=== PATIENT | female | born 1960 | race Native Hawaiian/Other Pacific Islander ===

== ENCOUNTER 2017-08-17 08:02 | Emergency (ER) | payer OTHER ==
[2017-08-17 08:12] VITALS: BMI 28.3
[2017-08-17 08:15] VITALS: TEMP 97.6
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
[2017-08-17 09:03] LABS: BASO # 0.1 K/uL (0.0-0.2); EOS # 0.5 K/uL (0.0-0.7); EOS % 9.2 % (0.0-4.0); HEMATOCRIT 42.2 % (34.0-47.0); LYMPH # 1.7 K/uL (1.0-4.3); LYMPH % 33.3 % (20.0-40.0); MEAN CORPUSCULAR HEMOGLOBIN 30.7 pg (27.0-31.0); MEAN CORPUSCULAR HGB CONC 33.7 g/dL (33.0-37.0); MEAN PLATELET VOLUME 8.4 fL (7.2-11.7); MONO # 0.5 K/uL (0.0-0.8); MONO % 9.6 % (0.0-10.0); NRBC % 0.2 % (0.0-2.0); RED CELL DISTRIBUTION WIDTH 13.3 % (11.5-14.5); WHITE BLOOD COUNT 5.1 K/uL (4.8-10.8)
[2017-08-17 09:16] LABS: RBC URINE 7 /hpf (0-3); URINE BACTERIA OCC (<OCC); URINE BILIRUBIN NEGATIVE (NEGATIVE); URINE COLOR Yellow (YELLOW); URINE GLUCOSE (UA) NORMAL (Normal); URINE KETONE NEGATIVE (NEGATIVE); URINE LEUKOCYTE ESTERASE NEG Leu/uL (Negative); URINE PROTEIN NEGATIVE (NEGATIVE); URINE UROBILINOGEN NORMAL mg/dL (0.2-1.0); WBC URINE 1 /hpf (0-5)
[2017-08-17 09:17] LABS: URINE BLOOD 1+ (NEGATIVE)
[2017-08-17 09:20] LABS: ALB/GLOB RATIO 1.6 (1.0-2.1); ALKALINE PHOSPHATASE 57 U/L (38-126); ALT/SGPT 41 U/L (9-52); AST/SGOT 31 U/L (14-36); BILIRUBIN,TOTAL 0.7 mg/dL (0.2-1.3); BLOOD UREA NITROGEN 13 mg/dL (7-17); CALCIUM 8.8 mg/dl (8.6-10.4); CARBON DIOXIDE 27 mmol/L (22-30); CHLORIDE 105 mmol/L (98-107); GFR AFRICAN-AMERICAN > 60; GLUCOSE,RANDOM 126 mg/dL (65-105); POTASSIUM 4.4 mmol/L (3.6-5.2); SODIUM 138 mmol/L (132-148); TOTAL PROTEIN 6.7 g/dL (6.3-8.3)
--- NOTE | 2017-08-17 09:26 | RAD ---
HISTORY: SOB COMPARISON: Chest radiographs 06/23/2014. TECHNIQUE: Chest PA and lateral FINDINGS: LUNGS: No active pulmonary disease. PLEURA: No significant pleural effusion identified. No pneumothorax apparent. CARDIOVASCULAR: Normal. OSSEOUS STRUCTURES: A non-destructive calcific density is once again identified at the right 7th rib postero-laterally once again. No significant abnormalities. VISUALIZED UPPER ABDOMEN: Normal. OTHER FINDINGS: None. IMPRESSION: No interval acute cardiopulmonary disease appreciated. Stable hyperdensity right 7th rib.
[2017-08-17 11:40] VITALS: BP 124/62; PULSE 69; RESP 18
[2017-08-17 11:41] VITALS: O2SAT 98
== END 2017-08-17 11:45 | disposition home or self-care (01) ==
LOC: C.ER 08:02
DX: R07.9 Chest pain, unspecified (principal); E78.00 Pure hypercholesterolemia, unspecified; I10 Essential (primary) hypertension

== ENCOUNTER 2018-02-18 17:46 | Emergency (ER) | payer OTHER ==
[2018-02-18 17:46] VITALS: BMI 28.3
[2018-02-18 17:55] VITALS: PULSE 78; RESP 18; TEMP 98; O2SAT 98
[2018-02-18] MEDS ORDERED: Bacitracin 500 Units/gm Oint Foilpak UD ONE (18:45)
--- NOTE | 2018-02-18 19:16 | C.PDOC ---
History Of Present Illness 57-year-old female presents to the ED for evaluation of left ankle pain which began earlier today. Patient states she was hiking when she accidentally tripped over a curb, twisted her left ankle, and injured her right knee. Patient denies pain to her right knee. Patient is unable to bear weight, prompting this visit. She denies head injury, LOC, extremity numbness/weakness. Time Seen by Provider: 02/18/18 17:52 Chief Complaint (Nursing): Lower Extremity Problem/Injury History Per: Patient History/Exam Limitations: no limitations Onset/Duration Of Symptoms: Hrs Current Symptoms Are (Timing): Still Present Additional History Per: Patient - Ankle/Foot Description Of Injury: Twisted Past Medical History Reviewed: Historical Data, Nursing Documentation, Vital Signs Vital Signs: Last Vital Signs Temp 98 F 02/18/18 17:51 Pulse 78 02/18/18 17:51 Resp 18 02/18/18 17:51 BP Pulse Ox 98 02/18/18 19:35 - Medical History PMH: Asthma, HTN, Hypercholesterolemia Family History: States: Unknown Family Hx - Social History Hx Tobacco Use: No Hx Alcohol Use: No Hx Substance Use: No - Immunization History Hx Tetanus Toxoid Vaccination: No Hx Influenza Vaccination: Yes Hx Pneumococcal Vaccination: No Review Of Systems Musculoskeletal: Positive for: Other (left ankle pain ) Neurological: Negative for: Weakness, Numbness, Other (head injury, LOC ) Physical Exam - Physical Exam Appears: Non-toxic, No Acute Distress Skin: Normal Color, Warm, Dry Head: Atraumatic, Normacephalic Eye(s): bilateral: Normal Inspection Oral Mucosa: Moist Neck: Supple Chest: Symmetrical, No Deformity, No Tenderness Cardiovascular: Rhythm Regular Respiratory: Normal Breath Sounds Extremity: Normal ROM (left toes ), Tenderness (mild, to left lateral malleolus ), Capillary Refill (less than 2 seconds ), Swelling (mild, to left lateral malleolus ) Pulses: Left Dorsalis Pedis: Normal Neurological/Psych: Oriented x3, Normal Speech, Normal Cognition, Normal Sensation ED Course And Treatment O2 Sat by Pulse Oximetry: 98 (on RA) Pulse Ox Interpretation: Normal Medical Decision Making Medical Decision Making: Progress: Left ankle XR and left foot XR ordered. Results are unremarkable. Tylenol PO administered. Air cast applied and patient instructed in crutch training Disposition - Disposition Referrals: Balise Gonzalez III, MD [Staff Provider] - Disposition: HOME/ ROUTINE Disposition Time: 19:33 Condition: GOOD Additional Instructions: Follow up with the Orthopedist within 1-2 days. Return if worsened. Instructions: Ankle Sprain (DC) Forms: [facility] ([place]ian), Work Excuse - Clinical Impression Clinical Impression: Ankle sprain - PA / GAS TRANSFER OPERATOR / Resident Statement MD/DO has reviewed & agrees with the documentation as recorded. - Scribe Statement The provider has reviewed the documentation as recorded by the Scribe (Syeda Benavides) All medical record entries made by the Scribe were at my direction and personally dictated by me. I have reviewed the chart and agree that the record accurately reflects my personal performance of the history, physical exam, medical decision making, and the department course for this patient. I have also personally directed, reviewed, and agree with the discharge instructions and disposition.
--- NOTE | 2018-02-18 19:41 | RAD ---
PROCEDURE: Left Ankle Radiographs. HISTORY: r/o fracture COMPARISON: None FINDINGS: BONES: No acute fracture or destructive bony lesion identified. JOINTS: Normal. No osteoarthritis. Ankle mortise maintained. Talar dome intact SOFT TISSUES: Limited soft tissue edema seen inferior to the medial malleolus and lateral to the lateral malleolus. OTHER FINDINGS: None. IMPRESSION: No acute fracture dislocation. Limited soft tissue edema seen medially and laterally as discussed above.
--- NOTE | 2018-02-18 19:42 | RAD ---
PROCEDURE: Left Foot Radiographs. HISTORY: foot injury COMPARISON: None. FINDINGS: BONES: No acute fracture or destructive bony lesion identified. JOINTS: Joint space narrowing seen throughout the interphalangeal joints diffusely as well as the 1st metatarsophalangeal joint accompanied by cortical sclerosis compatible degenerative joint disease. SOFT TISSUES: Normal. OTHER FINDINGS: None. IMPRESSION: Degenerative changes seen the forefoot as discussed above without fracture, dislocation or subluxation appreciable.
== END 2018-02-18 19:43 | disposition home or self-care (01) ==
LOC: C.ER 17:46
DX: S93.402A Sprain of unspecified ligament of left ankle, initial encounter (principal); W22.8XXA Striking against or struck by other objects, initial encounter; Y93.01 Activity, walking, marching and hiking; E78.00 Pure hypercholesterolemia, unspecified; I10 Essential (primary) hypertension

== ENCOUNTER 2018-02-24 07:18 | Emergency (ER) | payer OTHER ==
[2018-02-24 07:19] VITALS: BMI 28.3
[2018-02-24 07:30] VITALS: BP 116/73; PULSE 59; RESP 18; TEMP 97.8; O2SAT 98
--- NOTE | 2018-02-24 08:04 | C.PDOC ---
History Of Present Illness 57 y/o female c/o left ankle and foot pain since 02/18 after tripping and rolling ankle. pt fell onto right knee. pain in left ankle and foot getting worse. no numbness or tingling. Time Seen by Provider: 02/24/18 07:24 Chief Complaint (Nursing): Lower Extremity Problem/Injury History Per: Patient History/Exam Limitations: no limitations Onset/Duration Of Symptoms: Days (6) Current Symptoms Are (Timing): Worse Severity: Moderate - Knee Description Of Injury: Fell - Ankle/Foot Description Of Injury: Twisted Alleviating Factor(s): Other (raymond bandage) Past Medical History Reviewed: Historical Data, Nursing Documentation, Vital Signs Vital Signs: Last Vital Signs Temp 97.8 F 02/24/18 07:21 Pulse 59 L 02/24/18 07:21 Resp 18 02/24/18 07:21 BP 116/73 02/24/18 07:21 Pulse Ox 98 02/24/18 11:35 - Medical History PMH: Asthma, HTN, Hypercholesterolemia Family History: States: Unknown Family Hx - Social History Hx Tobacco Use: No Hx Alcohol Use: No Hx Substance Use: No - Immunization History Hx Tetanus Toxoid Vaccination: No Hx Influenza Vaccination: Yes Hx Pneumococcal Vaccination: No Review Of Systems Musculoskeletal: Positive for: Foot Pain (left), Other (left ankle pain) Skin: Positive for: Other (healing abrasion right knee). Negative for: Rash Neurological: Negative for: Weakness, Numbness Physical Exam - Physical Exam Appears: Non-toxic, No Acute Distress Skin: Warm, Dry Extremity: Other (left ankle tender to medial malleolus, swollen to both malleoli, +tenderness proximal 5th metatarsal. from. right knee with mild swelling. from healing non infected appearing abrasions. ) Extremity: Left: [place] Tenderness (med malleolus, 5th metatarsal) Pulses: Left Dorsalis Pedis: Normal Neurological/Psych: Oriented x3, Normal Speech, Normal Cognition, Normal Motor, Normal Sensation ED Course And Treatment O2 Sat by Pulse Oximetry: 98 Medical Decision Making Medical Decision Making: left ankle and foot pain- xray. pt seen by podiatry; pt saw pt and gave crutch instructions. pt to f/u with Dr Armstrong for outpatient mri, will give rx for cam boot Disposition Discussed With : Mora Armstrong Doctor Will See Patient In The: Office - Disposition Referrals: Mora Armstrong DPM [Staff Provider] - Disposition: HOME/ ROUTINE Disposition Time: 11:32 Condition: GOOD Additional Instructions: Please get prescription for cam boot filled and use crutches; try to minimze weightbearing. NSAID for pain. elevate when possible. Follow up with Dr Armstrong as soon as possible for outpatient mri. Instructions: Ankle Sprain (DC), How to Use Crutches Forms: General Discharge Instructions, [employer] [facility] (Czech), Work Excuse - Clinical Impression Clinical Impression: Left ankle sprain
--- NOTE | 2018-02-24 08:40 | RAD ---
PROCEDURE: Left Ankle Radiographs. HISTORY: lat and med mall pain COMPARISON: 02/18/2018 FINDINGS: BONES: Bone alignment and mineralization are normal. There is no acute displaced fracture or bone destruction. There is a prominent plantar calcaneal spur. JOINTS: Normal. No osteoarthritis. Ankle mortise maintained. Talar dome intact SOFT TISSUES: There is moderate periarticular soft tissue swelling. OTHER FINDINGS: None. IMPRESSION: No acute displaced fracture or dislocation. Moderate periarticular soft tissue swelling.
--- NOTE | 2018-02-24 08:41 | RAD ---
PROCEDURE: Left Foot Radiographs. HISTORY: 5th metatarsal pain COMPARISON: None. FINDINGS: BONES: Bone alignment and mineralization are normal. There is no acute displaced fracture or bone destruction. There is a prominent plantar calcaneal spur. JOINTS: Normal. SOFT TISSUES: Normal. OTHER FINDINGS: None. IMPRESSION: No acute fracture or dislocation.
--- NOTE | 2018-02-24 10:43 | RAD ---
PROCEDURE: Radiographs of the left tibia and fibula. HISTORY: pain s/p fall COMPARISON: None available. TECHNIQUE: Frontal and lateral views obtained. FINDINGS: BONES: Bone alignment and mineralization are normal. There is no acute displaced fracture or bone destruction. JOINT SPACES: Normal. OTHER FINDINGS: None. IMPRESSION: No acute fracture.
--- NOTE | 2018-02-24 17:00 | CP.PCM.CON ---
History of Present Illness - History of Present Illness History of Present Illness: 57 year odl female seen at bedside concering left ankle sprain on 02/18/18 she twisted ankle off curb while walking. Pt report sshe ahs had recurrent history of left side ankle sprains, which increase in debility and rate of recurrence. Could not immediately bear weight. Since event she ahs been icing, and elevating and has been able to bear weight over the last 3 days, but with pain during walking and prolonged periods of standing. She denies no numbness or tingling to the foot. She has no other pedal complaints. Past Patient History - Infectious Disease Hx of Infectious Diseases: None - Past Social History Smoking Status: Never Smoked - CARDIAC Hx Hypercholesterolemia: Yes Hx Hypertension: Yes - PULMONARY Hx Asthma: Yes - PSYCHIATRIC Hx Substance Use: No - SURGICAL HISTORY Hx Tubal Ligation: Yes (btl as per patient) - ANESTHESIA Hx Anesthesia: Yes Hx Anesthesia Reactions: No Hx Malignant Hyperthermia: No Meds Allergies/Adverse Reactions: Allergies Allergy/AdvReac Type Severity Reaction Status Date / Time No Known Allergies Allergy Verified 08/17/17 08:11 Physical Exam - Constitutional Appears: Well, Non-toxic, No Acute Distress - Extremities Exam Additional comments: Left lower leg fosuced. Neuro-vascular status intact. MUSCK: Infra- and retro-malleolar mild ecchymosis noted. Minor ecchmosis noted superior to lateral ankel joint. Mild non-pitting edema noted to rearfoor and ankle. Passive ankle ROM and circumduction intact. Pt has limited ability to maintain inversion of ankle and rearfoot. Tenderness illicited to direct palpation of medial and lateral colateral ligaments, no pain to medial or laterall malleoli. Tenderness illicted on stress ankle dorsiflexion and eversio , synsesmotic stress test with proximal leg pressure positive for potential syndesmotic injury. - Neurological Exam Neurological exam: Alert, Oriented x3 - Psychiatric Exam Psychiatric exam: Normal Affect, Normal Mood Results - Vital Signs Recent Vital Signs: Last Vital Signs Temp 97.8 F 02/24/18 07:21 Pulse 59 L 02/24/18 07:21 Resp 18 02/24/18 07:21 BP 116/73 02/24/18 07:21 Pulse Ox 98 02/24/18 13:03 Assessment & Plan - Assessment and Plan (Free Text) Assessment: 57 yea rodl female with traumatic ankle sprain. Plan: Pt seen and evalauted. Chart, labs, and vitals reviewed. Radiographs reviewed. Negative for osseous damage. No proximal fibular fracture noted. PT to continue use of ankle brace and ATIYA compression. Pt to be non-weightbearing in CAM boot with aid of axillary crutches. Pt to followup with Dr. Armstrong on out patient basis. - Date & Time Date: 02/24/18 Time: 09:40
== END 2018-02-24 12:27 | disposition home or self-care (01) ==
LOC: C.ER 07:18
DX: S93.402A Sprain of unspecified ligament of left ankle, initial encounter (principal); W01.0XXA Fall on same level from slipping, tripping and stumbling without subsequent striking against object, initial encounter; Y92.9 Unspecified place or not applicable
CPT/HCPCS: 73590; 73610; 73630; 97116; 97161; 99283; G8978; G8979; G8980

== ENCOUNTER 2018-07-18 09:42 | Emergency (ER) | payer BC ==
[2018-07-18 09:42] VITALS: BMI 28.3
[2018-07-18 09:54] VITALS: PULSE 72; RESP 20; TEMP 97; O2SAT 97
--- NOTE | 2018-07-18 10:19 | C.PDOC ---
Time Seen by Provider: 07/18/18 09:58 Chief Complaint (Nursing): Cough, Cold, Congestion Past Medical History Vital Signs: Last Vital Signs Temp 97 F L 07/18/18 09:50 Pulse 72 07/18/18 09:50 Resp 20 07/18/18 09:50 BP Pulse Ox 97 07/18/18 09:50 - Medical History PMH: Asthma, HTN, Hypercholesterolemia Family History: States: Unknown Family Hx - Social History Hx Tobacco Use: No Hx Alcohol Use: No Hx Substance Use: No - Immunization History Hx Tetanus Toxoid Vaccination: No Hx Influenza Vaccination: Yes Hx Pneumococcal Vaccination: No ED Course And Treatment O2 Sat by Pulse Oximetry: 97 Disposition - Disposition Forms: [employer] (Thai)
--- NOTE | 2018-07-18 10:21 | C.PDOC ---
History Of Present Illness 57 y/o female presents to ED with c/o cough, congestion, runny nose, sneezing and body aches since yesterday. Patient admits to chills and denies fever, nausea, vomiting, headache, recent travel or any other complaints at this time. HPI: Influenza Time Seen by Provider: 07/18/18 09:58 Chief Complaint: Cough, Cold, Congestion History Per: Patient Exam Limitations: no limitations Onset/Duration Of Symptoms: Days Symptoms include: bodyaches, nasal congestion Past Medical History Reviewed: Historical Data, Nursing Documentation, Vital Signs Vital Signs: Last Vital Signs Temp 97 F L 07/18/18 09:50 Pulse 72 07/18/18 09:50 Resp 20 07/18/18 09:50 BP Pulse Ox 97 07/18/18 09:50 - Medical History PMH: Asthma, HTN, Hypercholesterolemia Surgical History: No Surg Hx Family History: States: No Known Family Hx - Social History Hx Tobacco Use: No Hx Alcohol Use: No Hx Substance Use: No - Immunization History Hx Tetanus Toxoid Vaccination: No Hx Influenza Vaccination: Yes Hx Pneumococcal Vaccination: No Review Of Systems Except As Marked, All Systems Reviewed And Found Negative. Constitutional: Positive for: Chills ENT: Positive for: Nose Congestion Respiratory: Positive for: Cough Physical Exam - Physical Exam Appears: Non-toxic, No Acute Distress Skin: Warm, Dry, No Rash Head: Atraumatic, Normacephalic Eye(s): bilateral: Normal Inspection Oral Mucosa: Moist Throat: Erythema, No Exudate, No Drooling Neck: Supple Cardiovascular: Rhythm Regular Respiratory: Normal Breath Sounds, No Rales, No Rhonchi, No Wheezing Gastrointestinal/Abdominal: Soft, No Tenderness, No Guarding, No Rebound Neurological/Psych: Oriented x3, Normal Speech, Normal Cognition Medical Decision Making Medical Decision Making: Assessment: Flu- like symptoms. - ECG O2 Sat by Pulse Oximetry: 97 Disposition Counseled Patient/Family Regarding: Studies Performed, Diagnosis, Need For Fol lowup, Rx Given - Disposition Disposition: HOME/ ROUTINE Disposition Time: 10:19 Condition: STABLE Additional Instructions: follow up with your doctor within 2 days call to make an appointment take medications as prescribed rest and fluids return to ER if symptoms worsens or progress Prescriptions: Oseltamivir Phosphate [Tamiflu] 75 mg PO BID #10 capsule Instructions: Viral Upper Respiratory Infection, Adult (DC) Forms: General Discharge Instructions, [facility] ([place]), Work Excuse - Clinical Impression Clinical Impression: Influenza-like illness - Scribe Statement The provider has reviewed the documentation as recorded by the Hermanibamanda Tristan All medical record entries made by the Hermanibamanda were at my direction and personally dictated by me. I have reviewed the chart and agree that the record accurately reflects my personal performance of the history, physical exam, medical decision making, and the department course for this patient. I have also personally directed, reviewed, and agree with the discharge instructions and disposition.
== END 2018-07-18 10:25 | disposition home or self-care (01) ==
LOC: C.ER 09:42
DX: J11.1 Influenza due to unidentified influenza virus with other respiratory manifestations (principal)

== ENCOUNTER 2018-10-31 08:01 | Emergency (ER) | payer BC ==
[2018-10-31 08:05] VITALS: BMI 27.8
[2018-10-31 08:09] VITALS: BP 116/68; PULSE 71; RESP 16; TEMP 97.8; O2SAT 98
--- NOTE | 2018-10-31 08:54 | C.PDOC ---
History Of Present Illness 58 y/o female presents to the ED complaining of left lower leg pain for 2 weeks. She notes pain is worse since a recent long flight. Otherwise patient denies any chest pain, SOB, numbness, tingling, or focal weakness. Time Seen by Provider: 10/31/18 08:09 Chief Complaint (Nursing): Lower Extremity Problem/Injury History Per: Patient History/Exam Limitations: no limitations Onset/Duration Of Symptoms: Days Current Symptoms Are (Timing): Still Present Past Medical History Reviewed: Historical Data, Nursing Documentation, Vital Signs Vital Signs: Last Vital Signs Temp 97.8 F 10/31/18 08:06 Pulse 71 10/31/18 08:06 Resp 16 10/31/18 08:06 BP 116/68 10/31/18 08:06 Pulse Ox 98 10/31/18 08:06 - Medical History PMH: Asthma, HTN, Hypercholesterolemia Family History: States: Unknown Family Hx - Social History Hx Tobacco Use: No Hx Alcohol Use: No Hx Substance Use: No - Immunization History Hx Tetanus Toxoid Vaccination: No Hx Influenza Vaccination: Yes Hx Pneumococcal Vaccination: No Review Of Systems Constitutional: Negative for: Fever, Chills Cardiovascular: Negative for: Chest Pain Respiratory: Negative for: Shortness of Breath Musculoskeletal: Positive for: Leg Pain Skin: Negative for: Rash, Lesions Neurological: Negative for: Weakness, Numbness Physical Exam - Physical Exam Appears: Well, Non-toxic, No Acute Distress Skin: Warm, No Rash Head: Atraumatic, Normacephalic Eye(s): bilateral: PERRL, EOMI Neck: Supple Chest: Symmetrical Cardiovascular: Rhythm Regular, No Murmur Respiratory: Normal Breath Sounds, No Accessory Muscle Use, Other (No respiratory distress) Extremity: Normal ROM, Calf Tenderness (Left posterior calf tenderness), No Swelling (or erythema) Pulses: Left Dorsalis Pedis: Normal, Right Dorsalis Pedis: Normal Neurological/Psych: Oriented x3, Normal Speech, Normal Cognition ED Course And Treatment O2 Sat by Pulse Oximetry: 98 (on RA) Pulse Ox Interpretation: Normal Medical Decision Making Medical Decision Making: Plan: Venous Doppler ordered Doppler neg for DVT 0853 Will d/c patient home Disposition Counseled Patient/Family Regarding: Studies Performed, Diagnosis, Need For Followup - Disposition Referrals: Tone Wang MD [Staff Provider] - Mora Armstrong DPM [Staff Provider] - Disposition: HOME/ ROUTINE Disposition Time: 08:54 Condition: GOOD Additional Instructions: Tylenol or Motrin for pain Follow up with Dr Wang and Dr Armstrong Instructions: Lower Extremity Muscle Strain (DC) Forms: [facility] (Dutch), General Discharge Instructions - Clinical Impression Clinical Impression: Pain of left lower leg - PA / WHITE SOURER / Resident Statement MD/DO has reviewed & agrees with the documentation as recorded. - Scribe Statement The provider has reviewed the documentation as recorded by the Scribamanda Hdz All medical record entries made by the Hermanibamanda were at my direction and personally dictated by me. I have reviewed the chart and agree that the record accurately reflects my personal performance of the history, physical exam, medical decision making, and the department course for this patient. I have also personally directed, reviewed, and agree with the discharge instructions and disposition.
--- NOTE | 2018-10-31 14:53 | VASCLAB ---
Date of service: 10/31/2018 PROCEDURE: Left Lower Extremity Venous Duplex Exam. HISTORY: Left calf pain. PRIORS: None. TECHNIQUE: Left common femoral, femoral, popliteal and posterior tibial, peroneal and great saphenous veins were evaluated. Flow was assessed with color Doppler, compressibility, assessment of phasic flow and augmentation response. Report prepared by JENNIFER Hatch FINDINGS: LEFT: 1. Common Femoral Vein: 1.1. Compressibility - Fully compressible: Thrombus - None : Flow - Phasic: Augmentation -Normal: Reflux - None. 2. Femoral Vein: 2.1. Compressibility - Fully compressible: Thrombus - None: Flow - Phasic: Augmentation -Normal: Reflux - None. 3. Popliteal Vein: 3.1. Compressibility - Fully compressible: Thrombus - None: Flow - Phasic: Augmentation -Normal: Reflux - None. 4. Posterior Tibial Vein: 4.1. Compressibility - Fully compressible: Thrombus - None: Flow - Phasic: Augmentation -Normal: Reflux - None. 5. Peroneal Vein: 5.1. Compressibility - Fully compressible: Thrombus - None: Flow - Phasic: Augmentation -Normal: Reflux - None. 6. Great Saphenous Vein: 6.1. Compressibility - Fully compressible: Thrombus - None: Flow - Phasic: Augmentation - Normal: Reflux - None. OTHER FINDINGS: IMPRESSION: No evidence of deep or superficial vein thrombosis of the left lower extremity with excellent venous flow. Normal valve function noted of the left side. Normal venous flow noted in the right common femoral vein.
== END 2018-10-31 08:58 | disposition home or self-care (01) ==
LOC: C.ER 08:01
DX: M79.662 Pain in left lower leg (principal)

== ENCOUNTER 2018-11-07 10:05 | Outpatient (CLI) | payer BC | END 2018-11-07 10:06 | disposition home or self-care (01) | LOC: C.LAB 10:05 | DX: E11.9 Type 2 diabetes mellitus without complications (principal) ==